=== PATIENT | female | born 1945 | race Caucasian/White ===

== ENCOUNTER 2023-09-12 08:01 | Emergency (ER) | payer MEDICARE, BC | END 2023-09-12 11:18 | disposition home or self-care (01) | LOC: MW.ED 08:01 | DX: S82.65XA Nondisplaced fracture of lateral malleolus of left fibula, initial encounter for closed fracture (principal); I10 Essential (primary) hypertension; Z88.4 Allergy status to anesthetic agent; Z79.899 Other long term (current) drug therapy; W19.XXXA Unspecified fall, initial encounter | CPT/HCPCS: 29515; 73610-26-LT; 73610-LT; 99283 ==